=== PATIENT | male | born 1980 | race Caucasian/White ===

== ENCOUNTER → 2021-01-30 | Outpatient (CLI) | payer OTHER ==
[~2021-01-30] MED LIST: OXYC-325 PO
== END ==
LOC: LAB 12:49
PROVIDERS: ATTEND Surgery
DX: Z01.812 Encounter for preprocedural laboratory examination (principal); Z20.822 Contact with and (suspected) exposure to COVID-19
CPT/HCPCS: U0003; U0005

== ENCOUNTER 2021-02-01 08:50 | Day surgery (SDC) | payer OTHER ==
[~2021-02-01] VITALS: Ht 188 cm; Wt 106.5 kg
[~2021-02-01 08:50] MED LIST changes: +ACETAMINOPHEN 500 MG TABLET PO PRN; +BUPIVACAINE-EPI 0.25% 30 ML VIAL KIT. ONE; +HYDROmorphone 2 MG/ML VIAL IVP PRN; +IV RINGERS,LACTATED 1000ML 1,000 ML IV SCH; +MINERAL OIL for SURGERY 10 ML VIAL. MC ONE; +MORPHINE SULFATE 2 MG/ML INJ. IVP PRN; -OXYC-325 PO; +PROCHLORPERAZINE 10 MG/2 ML VIAL. IVP PRN; +fentaNYL PF VIAL 100 MCG/2 ML VIAL IVP PRN
[2021-02-01 09:28] VITALS: BP 136/95
--- NOTE | 2021-02-01 09:41 | PDOC1 ---
History and Physical Date of Admission Date of Admission DATE: 02/01/21 TIME: 09:39 Identification/Chief Complaint Chief Complaint Left inguinal hernia Source Source: Patient History of Present Illness History of Present Illness 40-year-old male with complaints of painful bulge of left groin ultrasound showed left inguinal hernia Past Medical History Cardiovascular: No pertinent hx Pulmonary: No pertinent hx GI: No pertinent hx Heme/Onc: No pertinent hx Hepatobiliary: No pertinent hx Psych: No pertinent hx Rheumatologic: No pertinent hx Infectious disease: No pertinent hx ENT: No pertinent hx Renal/: No pertinent hx Endocrine: No pertinent hx Dermatology: No pertinent hx Past Surgical History Past Surgical History: Cholecystectomy Family History Family History: No Significant Social History Smoke: No ALCOHOL: none Drugs: None Current Medications Current Medications Current Medications Fentanyl Citrate (Fentanyl 2ml Vial) 25 mcg PRN Q5MIN PRN IVP MILD PAIN 1-3; Start 02/01/21 at 06:00; Stop 02/02/21 at 05:59 Fentanyl Citrate (Fentanyl 2ml Vial) 50 mcg PRN Q5MIN PRN IVP MODERATE PAIN 4- 6; Start 02/01/21 at 06:00; Stop 02/02/21 at 05:59 Morphine Sulfate (Morphine Sulfate) 1 mg PRN Q10MIN PRN IVP SEVERE PAIN 7-10; Start 02/01/21 at 06:00; Stop 02/02/21 at 05:59 Ringer's Solution 1,000 ml @ 30 mls/hr Q24H IV Last administered on 02/01/21at 09:33; Start 02/01/21 at 06:00; Stop 02/01/21 at 17:59 Hydromorphone HCl (Dilaudid) 0.5 mg PRN Q10MIN PRN IVP SEVERE PAIN 7-10, 2nd CHOICE; Start 02/01/21 at 06:00; Stop 02/02/21 at 05:59 Prochlorperazine Edisylate (Compazine) 5 mg PACU PRN PRN IVP NAUSEA, MRX1; Start 02/01/21 at 06:00; Stop 02/02/21 at 05:59 Acetaminophen (Tylenol) 1,000 mg 1X PREOP PRN PO PRIOR TO PROCEDURE Last administered on 02/01/21at 09:34; Start 02/01/21 at 06:00; Stop 02/01/21 at 18:00 Levofloxacin/ Dextrose 100 ml @ 100 mls/hr 1X PREOP PRN IV PRIOR TO PROCEDURE; Start 02/01/21 at 06:00; Stop 02/01/21 at 18:00 Bupivacaine HCl/ Epinephrine Bitart (Sensorcain-Epi 0.25% Kit) 30 ml STK-MED ONCE .ROUTE ; Start 02/01/21 at 07:22; Stop 02/01/21 at 07:22; Status DC Mineral Oil (Muri-Lube) 10 ml STK-MED ONCE MC ; Start 02/01/21 at 07:22; Stop 02/01/21 at 07:23; Status DC Active Scripts Active Reported No Known Medications Prior To Admisstion (Info) Each 1 Each MC DAILY Allergies Allergies: Coded Allergies: Penicillins (Verified Allergy, Intermediate, Hives, 01/30/21) amoxicillin (Verified Allergy, Intermediate, Hives, 01/30/21) nickel (Verified Adverse Reaction, Intermediate, Rash, 01/30/21) Physical Exam General: Alert, Oriented X3, Cooperative, No acute distress HEENT: Atraumatic, EOMI Lungs: Clear to auscultation, Normal air movement Heart: RRR, no murmurs Abdomen: Normal bowel sounds, Soft, No tenderness Male Genitals Exam: inguinal tenderness (Left side) Extremities: No edema Skin: No significant lesion Neuro: Normal speech Psych/Mental Status: Mental status NL Vitals Vitals Vital Signs Date Time Temp Pulse Resp B/P (MAP) Pulse Ox O2 Delivery O2 Flow Rate FiO2 02/01/21 09:32 98.7 99 136/95 97 Room Air 98.7 02/01/21 09:28 20 VTE Prophylaxis Ordered VTE Prophylaxis Devices: Yes VTE Pharmacological Prophylaxi: Contraindicated Assessment/Plan Assessment/Plan Left inguinal hernia plan robotic assisted laparoscopic left inguinal hernia repair with mesh Justifications for Admission Other Justification SAMRA MONTALVO MD Feb 01, 2021 09:41
[2021-02-01] MEDS ORDERED: FAMOTIDINE 20 MG/2 ML VIAL ONE (09:44)
[2021-02-01] MEDS ORDERED: ONDANSETRON PF 4 MG/2 ML VIAL. ONE (09:44)
[2021-02-01] MEDS ORDERED: PROPOFOL 10 MG/ML (20ML) VIAL. IV ONE (09:44)
[2021-02-01] MEDS ORDERED: DEXAMETHASONE SOD PHOS 4 MG/ML VIAL ONE (09:44)
[2021-02-01] MEDS ORDERED: fentaNYL PF VIAL 100 MCG/2 ML VIAL ONE (09:45)
[2021-02-01] MEDS ORDERED: MIDAZOLAM HCL/PF 2 MG/2 ML VIAL. ONE (09:45)
[2021-02-01] MEDS ORDERED: ROCURONIUM 50 MG/5 ML VIAL. ONE (09:56)
[2021-02-01] MEDS ORDERED: HYDROmorphone 2 MG/ML VIAL ONE ×2 (10:14→10:25)
[2021-02-01] MEDS ORDERED: PHENYLEPHRINE in 0.9% NACL PF 1 MG/10 ML SYRINGE. IV ONE (10:18)
[2021-02-01] MEDS ORDERED: BUPIVACAINE-EPI 0.25%-1:200000 MPF 30 ML VIAL. ONE (10:21)
[2021-02-01] MEDS ORDERED: GLYCOPYRROLATE 1 MG/5 ML VIAL. ONE (10:59)
[2021-02-01] MEDS ORDERED: NEOSTIGMINE 10 MG/10 ML VIAL. ONE (10:59)
--- NOTE | 2021-02-01 11:03 | PDOC4 ---
Operative Note Operative Note Date: February 01, 2021 at 11 AM Preoperative diagnosis: Incarcerated left inguinal hernia Postoperative diagnosis: Same Procedure: Robotic assisted laparoscopic left inguinal hernia repair with mesh Surgeon: Charles Specimen: None Dictation: Patient is a 40-year-old male with complaints of left groin pain. Previous ultrasound showed a left inguinal hernia. Procedure of robotic assisted laparoscopic left inguinal hernia repair with mesh was explained to the patient detail risk benefits were also discussed including bleeding infection injury to intra-abdominal contents pus necessitating further open operations alternatives to this procedure also discussed with the patient who seemed to understand and gave a verbal written consent had procedure performed. Patient was taken to the operating room placed in the supine position general anesthesia was initiated once patient was sleeping in bed his abdomen was prepped and draped usual sterile fashion using ChloraPrep. Area just above the umbilicus was injected with quarter percent Marcaine with epinephrine incision was made 11 blade scalpel and a varies needle was placed within the abdomen creating pneumoperitoneum once this was complete 8 mm ventral port was placed in the 8 mm camera was placed within the abdomen which was inspected was noted that there was sigmoid colon stuck within the left inguinal hernia defect. 8 mm ventral port was placed in the right midabdomen and an 8 mm ventral port was placed in left midabdomen under direct visualization. The da Michael robot is brought and docked all port sites surgeon went to the robotic console using a grasper and Endo Dirk scissors the contents of the incarcerated hernia reduced a window was propagated the peritoneum over the left groin area inferiorly reducing the hernia sac and contents. Once this was complete large Bard 3D max mesh for the left side was then placed over the hernia defect and the peritoneum was closed over the mesh with a running 2 OV lock absorbable suture. The suture was removed from the abdomen the pneumoperitoneum was reduced the da Michael was undocked all port were removed. Port sites were all closed with 4 subcuticular Monocryl Mastisol Steri-Strips and island dressings were applied. Patient was awakened extubated operating room taken recovery in stable condition all sponge instrument needle counts listed as correct estimated blood loss 10 mL SAMRA MONTALVO MD Feb 01, 2021 11:03
[2021-02-01] MEDS ORDERED: OXYC-325 PO (11:05)
--- NOTE | 2021-02-01 11:06 | DISCH ---
DISCHARGE INSTRUCTIONS Condition on Discharge Condition on Discharge: Stable Activity After Discharge Activity Instructions for Disc: Avoid exertion Other activity instructions: No lifting more than 20 pounds for 2 weeks Diet after Discharge Diet after Discharge: Regular Wound Incision Care Other wound/incision instructi: Carly shower in 24 hours Contacting the [facility] after DC Call your doctor for: If your condition worsens Follow-Up Follow up with: Dr. Montalvo in 2 weeks SAMRA MONTALVO MD Feb 01, 2021 11:06
[2021-02-01] MEDS ORDERED: oxyCODONE/APAP 5/325 1 TAB TABLET PO ONE (11:45)
[2021-02-01] MEDS ORDERED: PROCHLORPERAZINE 10 MG/2 ML VIAL. ONE (11:50)
[2021-02-01 12:45] VITALS: BP 117/83
== END 2021-02-01 13:20 | disposition home or self-care (01) ==
LOC: EDBD → SURG 08:50 → MERGE 10:00 → SURG 13:20
PROVIDERS: ATTEND Surgery
DX: K40.30 Unilateral inguinal hernia, with obstruction, without gangrene, not specified as recurrent (principal); Z79.899 Other long term (current) drug therapy; Z87.891 Personal history of nicotine dependence; Z98.890 Other specified postprocedural states; Z90.49 Acquired absence of other specified parts of digestive tract; Z88.0 Allergy status to penicillin; Z88.1 Allergy status to other antibiotic agents; Z88.8 Allergy status to other drugs, medicaments and biological substances
CPT/HCPCS: 49650; J0780; J1100; J1170; J1956; J2250; J2370; J2405; J2704; J2710; J3010; J3490; S2900; A4364; A4657; A4930; A6219; C1781